=== PATIENT | female | born 1965 | race Caucasian/White ===

== ENCOUNTER 2019-11-02 03:37 | Observation (INO) ==
--- NOTE | 2019-11-02 04:05 | Emergency Department Note ---
History of Present Illness General Chief complaint: Abdominal Pain Stated complaint: Abdominal pain Time Seen by Provider: 11/02/19 03:41 History of Present Illness Maximum Pain Intensity: 2 This is a 54-year-old female that presents to the emergency department via ambulance with complaints of "abdominal pain". The patient states that prior to April of this year she was experiencing periumbilical abdominal pain about once a month. This is since that time seems to have increased. She states that this evening she was awoken from sleep around 1:45 AM with periumbilical abdominal pain that radiated to the posterior mid back region. She denies any chest pain or shortness of breath. No fevers or chills. She denies any loss of taste or smell. Current discomfort is very minimal at a 2/10 however prior to arrival was very severe and this was what prompted her to call the ambulance. She also notes that she was diaphoretic. She denies any known cardiac abnormalities besides hypertension. No history of abdominal surgeries. No nausea, vomiting or diarrhea. Home Medications Home Medications Medication Instructions Recorded Confirmed Type hydrochlorothiazide 25 mg PO HS 07/20/18 11/02/19 History losartan 100 mg PO HS 07/20/18 11/02/19 History oxycodone-acetaminophen [Percocet] 1 tab PO Q6H PRN #20 tab 11/03/19 Rx Allergies Allergy/AdvReac Type Severity Reaction Status Date / Time No Known Drug Allergies Allergy Unknown Verified 11/02/19 04:11 Past Med/Surg History Medical History Anxiety Depression Fluid retention in legs Genital warts GERD (gastroesophageal reflux disease) Hernia CURRENT ABDOMINAL HERNIA History of genital warts LASER PROCEDURE TO REMOVE Hypertension Urinary frequency Surgical History History of tooth extraction Hx of LASIK Family History Father Alcohol abuse Diabetes Brother Alcohol abuse Mother Hypertension Sister Hypertension Diabetes Aunt Multiple gestation paternal Denies family history of Pancreatic cancer Ovarian cancer Breast cancer Colorectal cancer Uterine cancer Social History (Updated 11/02/19 @ 06:16 by Minnie Orozco MD) Smoking Status: Current every day smoker Cigarettes Per Day: 20 CIG DAILY; Second Hand Exposure: No; Hx Alcohol Use: Yes Alcohol type: hard liquor Hx Substance Use: No Preferred Language: Bruneian Communication Ability: Effective 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 Beliefs That Will Affect Care: None Current Living Situation: Alone Feels Safe at Home: Yes Review of Systems A total of 10 systems reviewed and were otherwise negative Physical Exam Vital Signs Vital Signs - 24 hr 11/02/19 03:41 11/02/19 03:47 11/02/19 04:38 Temperature 37.1 C Temperature Source Oral Pulse Rate 68 71 66 Pulse Rate from SpO2 Sensor 69 70 66 Respiratory Rate 21 19 18 Respiratory Depth Shallow Blood Pressure 139/90 139/90 146/71 H Blood Pressure Mean 96 106 95 Pulse Oximetry 99 98 95 Oxygen Delivery Method Room Air Sepsis Recent Fever Within 48 Hours No Sepsis New/Unexplained Change in Mental Status No Sepsis Action Taken by Nursing No Action Required 11/02/19 05:02 11/02/19 05:32 11/02/19 06:00 Temperature Temperature Source Pulse Rate 64 69 63 Pulse Rate from SpO2 Sensor 64 71 59 L Respiratory Rate 18 21 21 Respiratory Depth Blood Pressure 129/53 L Blood Pressure Mean 83 Pulse Oximetry 96 96 93 Oxygen Delivery Method Sepsis Recent Fever Within 48 Hours Sepsis New/Unexplained Change in Mental Status Sepsis Action Taken by Nursing VITAL SIGNS - Vital signs and nursing notes were reviewed. Stable and afebrile. GENERAL - 54-year-old female appearing her stated age who is in no acute distress. Communicates well with provider and answers questions appropriately. SKIN - Without rashes. HEAD - NC/AT. EYES - PERRL with EOMI bilaterally. Sclera anicteric. EARS - No deformities of external structures noted on gross examination bilaterally. NOSE - Midline and without cyanosis. No epistaxis or purulent drainage noted. MOUTH/OROPHARYNX - Without perioral cyanosis. NECK - Neck with FROM. No nuchal rigidity. LUNGS - Chest wall symmetric without accessory muscle use, intercostals retractions, or central cyanosis. Normal vesicular breath sounds CTA B/L. No wheezes, rales, or rhonchi appreciated. CARDIAC - RRR with S1/S2. No murmur, rubs, or gallops appreciated. ABDOMEN - Abdominal contour normal without pulsations or visible masses. BS normoactive all four quadrants. No TTP of the abd. Abd soft and non rigid. No palpable masses, hepatosplenomegaly, or ascites noted. EXTREMITIES - +5/5 strength noted in UE/LE bilaterally. NEUROLOGIC - Cranial nerves II through XII grossly intact. Sensory intact to light touch throughout. PSYCH - A&O, and cooperates fully with examiner. Pt is very pleasant and interacts well with examiner. Course Administered Medications Docusate Sodium (Docusate Sodium 100 Mg Cap) 100 mg PO BID JOSHUA Stop: 12/02/19 20:59 Last Admin: 11/03/19 08:15 Dose: 100 mg Documented by: [id number] Admin: 11/02/19 20:40 Dose: 100 mg Documented by: [id number] Hydrochlorothiazide (Hydrochlorothiazide 25 Mg Tab) 25 mg PO HS JOSHUA Stop: 12/02/19 20:59 Last Admin: 11/02/19 20:40 Dose: 25 mg Documented by: [id number] Lactated Ringer's (Lr) 1,000 mls @ 15 mls/hr IV .Q24H JOSHUA Stop: 12/02/19 08:14 Last Admin: 11/03/19 08:17 Dose: Not Given Documented by: [id number] Admin: 11/02/19 12:13 Dose: Not Given Documented by: [id number] Lactated Ringer's (Lr) 1,000 mls @ 80 mls/hr IV .[id number] JOSHUA Stop: 12/02/19 11:32 Last Admin: 11/03/19 04:49 Dose: 80 mls/hr Documented by: [id number] Infusion: 11/03/19 04:49 Dose: 80 mls/hr Documented by: [id number] Admin: 11/02/19 17:34 Dose: 80 mls/hr Documented by: [id number] Cefazolin Sodium (Ancef 2000mg) 2,000 mg in 15 mls @ 3.75 mls/min IV Q8H JOSHUA Stop: 11/03/19 15:59 Last Admin: 11/03/19 08:19 Dose: 3.75 mls/min Documented by: [id number] Admin: 11/02/19 23:33 Dose: 3.75 mls/min Documented by: [id number] Admin: 11/02/19 15:51 Dose: 3.75 mls/min Documented by: [id number] Losartan Potassium (Losartan Potassium 50 Mg Tab) 100 mg PO JOSHUA Stop: 12/02/19 20:59 Last Admin: 11/02/19 20:40 Dose: 100 mg Documented by: [id number] Oxycodone/Acetaminophen (Oxycodone/Acetaminophen 5mg/325mg Tab) 1 tab PO Q4H PRN PRN Reason: MODERATE Pain (Scale 4,5,6) Stop: 11/16/19 11:32 Last Admin: 11/03/19 07:09 Dose: 1 tab Documented by: [id number] Admin: 11/02/19 15:51 Dose: 1 tab Documented by: [id number] Discontinued Medications Bacitracin (Bacitracin Oint 15 Gm Tube) Confirm Administered Dose 45 appln . ROUTE .STK-MED ONE Stop: 11/02/19 08:01 Last Admin: 11/02/19 09:35 Dose: 45 appln Documented by: [id number] Bupivacaine HCl (Bupivacaine 0.5 % 5 Mg/1 Ml Mpf 30ml Vial) Confirm Administered Dose 30 ml .ROUTE .STK-MED ONE Stop: 11/02/19 08:01 Last Admin: 11/02/19 09:40 Dose: 20 ml Documented by: [id number] Cefazolin Sodium (Cefazolin 3000mg/72.5 Ml Bag) Confirm Administered Dose 3,000 mg IV .STK-MED ONE Stop: 11/02/19 08:07 Last Admin: 11/02/19 08:10 Dose: 3,000 mg Documented by: [id number] Hydromorphone HCl (Hydromorphone Inj 1 Mg/Ml Syringe) 1 mg IV NOW STA Stop: 11/02/19 05:21 Last Admin: 11/02/19 05:28 Dose: 1 mg Documented by: [id number] Cefazolin Sodium (Ancef 3000mg) 72.5 mls @ 130 mls/hr IV PREOP ONE Stop: 11/02/19 09:03 Last Admin: 11/02/19 12:48 Dose: Not Given Documented by: [id number] Ioversol (Optiray 320 125ml) 125 ml IV ONCE ONE Stop: 11/02/19 04:38 Last Admin: 11/02/19 04:37 Dose: 119 ml Documented by: [id number] Lidocaine HCl (Lidocaine Hcl 1% 20 Ml Vial) Confirm Administered Dose 20 ml .ROUTE .STK-MED ONE Stop: 11/02/19 08:01 Last Admin: 11/02/19 09:40 Dose: 20 ml Documented by: [id number] Menthol (Cough Drop (Sugar Free) Altaf 24 Altaf/1 Box) Confirm Administered Dose 24 altaf BUCCAL .STK-MED ONE Stop: 11/03/19 02:40 Last Admin: 11/03/19 04:49 Dose: 24 altaf Documented by: [id number] Ondansetron HCl (Ondansetron Inj 2 Mg/Ml 2 Ml Vial) 4 mg IV NOW STA Stop: 11/02/19 05:21 Last Admin: 11/02/19 05:27 Dose: 4 mg Documented by: [id number] Medical Decision Making Laboratory Data Result diagrams: 11/03/19 06:08 11/02/19 03:52 Lab Results 11/02/19 11/02/19 11/02/19 Range/Units 03:52 03:52 03:52 WBC 10.13 (4.8-10.8) K/uL RBC 4.71 (4.2-5.4) M/uL Hgb 14.9 (12.0-16.0) g/dL Hct 43.0 (37-47) % MCV 91.3 (80-100) fL MCH 31.6 (25-34) pg MCHC 34.7 (32-36) g/dL RDW Std Deviation 43.0 (36.4-46.3) fL RDW Coeff of Azul 12.9 (11.5-14.5) % Plt Count 266 (130-400) K/uL MPV 10.9 H (7.4-10.4) fL Immature Gran % (Auto) 0.3 % Neut % (Auto) 65.3 % Lymph % (Auto) 25.4 % Mccracken % (Auto) 6.4 % Eos % (Auto) 2.4 % Baso % (Auto) 0.2 % Neut # (Auto) 6.62 H (1.4-6.5) K/uL Lymph # (Auto) 2.57 (1.2-3.4) K/uL Mccracken # (Auto) 0.65 H (0.11-0.59) K/uL Eos # (Auto) 0.24 (0-0.5) K/uL Baso # (Auto) 0.02 (0-0.2) K/uL Immature Gran # (Auto) 0.03 H (0.00-0.02) K/uL Sodium 138 (136-145) mmol/L Potassium 3.2 L (3.5-5.1) mmol/L Chloride 101 (98-107) mmol/L Carbon Dioxide 31 (21-32) mmol/L Anion Gap 6.0 (3-11) BUN 17 (7-18) mg/dl Creatinine 0.95 (0.6-1.2) mg/dl Est Cr Clr Drug Dosing 102.8 ml/min Est GFR ( Amer) 79.8 Est GFR (Non-Af Amer) 68.9 BUN/Creatinine Ratio 18.0 (10-20) Glucose 146 H (70-99) mg/dl Calcium 8.9 (8.5-10.1) mg/dl Magnesium 2.0 (1.8-2.4) mg/dl Total Bilirubin 0.3 (0.2-1) mg/dl AST 15 (15-37) U/L ALT 31 (12-78) U/L Alkaline Phosphatase 78 (45-117) U/L Troponin I < 0.015 (0-0.045) ng/ml Total Protein 7.3 (6.4-8.2) gm/dl Albumin 3.6 (3.4-5.0) gm/dl Globulin 3.7 (2.5-4.0) gm/dl Albumin/Globulin Ratio 1.0 (0.9-2) Lipase 114 (73-393) U/L TSH 4.470 (0.300-4.500) uIu/ml Urine Color Yellow Urine Appearance Cloudy A (Clear) Urine pH 5.5 (4.5-7.5) Ur Specific Wolcott 1.021 (1.000-1.030) Urine Protein Negative (Negative) Urine Glucose (UA) Negative (Negative) Urine Ketones Trace H (Negative) Urine Blood Negative (Negative) Urine Nitrite Negative (Negative) Urine Bilirubin Negative (Negative) Urine Urobilinogen Negative (Negative) Ur Leukocyte Esterase Trace H (Negative) Urine WBC (Auto) 5-10 H (0-5) /hpf Urine RBC (Auto) 0-4 (0-4) /hpf U Hyaline Cast (Auto) 1-5 (0-5) /lpf U Epithel Cells (Auto) >30 H (0-5) /lpf Urine Bacteria (Auto) 1+ H (Negative) POC Ur Test (NEG) COVID-19 Eval Order SARS-CoV-2, RNA, NAAT (NEGATIVE) 11/02/19 11/02/19 11/02/19 Range/Units 03:52 06:20 06:20 WBC (4.8-10.8) K/uL RBC (4.2-5.4) M/uL Hgb (12.0-16.0) g/dL Hct (37-47) % MCV (80-100) fL MCH (25-34) pg MCHC (32-36) g/dL RDW Std Deviation (36.4-46.3) fL RDW Coeff of Azul (11.5-14.5) % Plt Count (130-400) K/uL MPV (7.4-10.4) fL Immature Gran % (Auto) % Neut % (Auto) % Lymph % (Auto) % Mccracken % (Auto) % Eos % (Auto) % Baso % (Auto) % Neut # (Auto) (1.4-6.5) K/uL Lymph # (Auto) (1.2-3.4) K/uL Mccracken # (Auto) (0.11-0.59) K/uL Eos # (Auto) (0-0.5) K/uL Baso # (Auto) (0-0.2) K/uL Immature Gran # (Auto) (0.00-0.02) K/uL Sodium (136-145) mmol/L Potassium (3.5-5.1) mmol/L Chloride (98-107) mmol/L Carbon Dioxide (21-32) mmol/L Anion Gap (3-11) BUN (7-18) mg/dl Creatinine (0.6-1.2) mg/dl Est Cr Clr Drug Dosing ml/min Est GFR ( Amer) Est GFR (Non-Af Amer) BUN/Creatinine Ratio (10-20) Glucose (70-99) mg/dl Calcium (8.5-10.1) mg/dl Magnesium (1.8-2.4) mg/dl Total Bilirubin (0.2-1) mg/dl AST (15-37) U/L ALT (12-78) U/L Alkaline Phosphatase (45-117) U/L Troponin I (0-0.045) ng/ml Total Protein (6.4-8.2) gm/dl Albumin (3.4-5.0) gm/dl Globulin (2.5-4.0) gm/dl Albumin/Globulin Ratio (0.9-2) Lipase (73-393) U/L TSH (0.300-4.500) uIu/ml Urine Color Urine Appearance (Clear) Urine pH (4.5-7.5) Ur Specific Wolcott (1.000-1.030) Urine Protein (Negative) Urine Glucose (UA) (Negative) Urine Ketones (Negative) Urine Blood (Negative) Urine Nitrite (Negative) Urine Bilirubin (Negative) Urine Urobilinogen (Negative) Ur Leukocyte Esterase (Negative) Urine WBC (Auto) (0-5) /hpf Urine RBC (Auto) (0-4) /hpf U Hyaline Cast (Auto) (0-5) /lpf U Epithel Cells (Auto) (0-5) /lpf Urine Bacteria (Auto) (Negative) POC Ur Test NEG (NEG) COVID-19 Eval Order Covid19 [facility] SARS-CoV-2, RNA, NAAT NEGATIVE (NEGATIVE) Imaging Data Radiologist's Impression: CT ABDOMEN & PELVIS With Contrast: Periumbilical/supraumbilical hernia containing a loop of small bowel and intraperitoneal fat. No evidence for high-grade bowel obstruction. However, the herniated peritoneal fat is slightly hyperdense. Differential consideration includes edema or subtle inflammation. No free fluid. No intraperitoneal evidence for high-grade bowel obstruction. No free intrap eritoneal fluid or pneumoperitoneum. Incidental normal caliber appendix suggested medial to the cecum. Subcentimeter gallstones noted in the posterior aspect of the gallbladder. No biliary dilatation or CT evidence for gallbladder wall thickening. The liver, pancreas, spleen, adrenal glands and kidneys are unremarkable. The bladder is unremarkable. No acute osseous abnormality. Radiologist: Tanner Can MD Study ready at 04:48 and initial results transmitted at 05:04 ECG Data Additional Comments: Sinus rhythm at a rate of 60 bpm. No ectopy or ischemic change. No evidence of OH. QTc 459. MDM Narrative Patient was seen and evaluated as above in room C12. Review was performed of nursing notes and vital signs. I did review pertinent previous visits and patient history. After obtaining a thorough history and physical examination the above work up was performed. She presents to us today with abdominal pain. On my examination there is no pain. She notes tremendous improvement of her pain since she had called the ambulance. The patient denies any cardiac history other than hypertension. On arrival an EKG was obtained and reveals sinus rhythm at a rate of 68 bpm. No ectopy or ischemic change. Options of care were discussed and decision was made within a chest x-ray as well as CT scan of the abdomen and pelvis. Chest x-ray per my interpretation reveals no acute process. Patient declined pain medication. CT scan reveals no leukocytosis or anemia. Mild hypokalemia at 3.2. Glucose 146. Troponin negative. Urinalysis does not suggest clear infection. UPT negative. Chest x-ray negative per my interpretation as noted above. A CT scan was obtained of the abdomen pelvis and does reveal a supraumbilical hernia containing a loop of small bowel and intraperitoneal fat. On examination the hernia is not reducible thus far. I discussed the presentation with the on-call surgeon, Dr. Orozco. She came to evaluate the patient. Pain medication was recommended (with subsequent attempt at manual reduction at bedside) and I discussed this with the patient and she was amenable to this. 1 mg of Dilaudid was ordered and 4 mg of Zofran was ordered for any potential nausea associated with the pain medication. Dr. Ray can came to assess the patient. Plan at this time is operative management by Dr. Dotson later today. Please refer to further documentation regarding the patient's stay. GCS: 15 In the evaluation and treatment of this patient, the following differential diagnoses were considered: ASC, OH, Pneumonia, GERD, Cholecystitis, Ascending Cholangitis, Cholydocholithiasis, Bowel Obstruction, PE, Amongst Others. Impression & Plan Incarcerated hernia Discharge Plan Visit Data Chief Complaint: Abdominal Pain Stated Complaint: Abdominal pain ED Provider: Gomez Bernal ED Midlevel Provider: Ag Newberry Discharge Problem: Incarcerated hernia Patient Disposition: Being Evaluated by Surgeon Condition: Good Discharge Instructions Interventions: ED Discharge Assessment Last Done: 11/02/19 07:46
[2019-11-02 04:13] LABS: Basophils # (auto) 0.02 K/uL (0-0.2); Basophils % (auto) 0.2 %; Eosinophils # (auto) 0.24 K/uL (0-0.5); Eosinophils % (auto) 2.4 %; Hemoglobin 14.9 g/dL (12.0-16.0); Immature Granulocytes # (auto) 0.03 K/uL (0.00-0.02); Immature Granulocytes % (auto) 0.3 %; Lymphocytes # (auto) 2.57 K/uL (1.2-3.4); Lymphocytes % (auto) 25.4 %; Mean Corpuscular Hemoglobin 31.6 pg (25-34); Mean Corpuscular Hgb Conc 34.7 g/dL (32-36); Mean Corpuscular Volume 91.3 fL (80-100); Mean Platelet Volume 10.9 fL (7.4-10.4); Monocytes # (auto) 0.65 K/uL (0.11-0.59); Monocytes % (auto) 6.4 %; Neutrophils # (auto) 6.62 K/uL (1.4-6.5); Neutrophils % (auto) 65.3 %; Platelet Count 266 K/uL (130-400); RDW Coefficient of Variation 12.9 % (11.5-14.5); Red Blood Count 4.71 M/uL (4.2-5.4); White Blood Count 10.13 K/uL (4.8-10.8)
[2019-11-02 04:16] LABS: Appearance Urine Cloudy (Clear); Bacteria Urine Automated 1+ (Negative); Bilirubin Urine Negative (Negative); Blood Urine Negative (Negative); Color Urine Yellow; Epithelial Cell Urine Auto >30 /lpf (0-5); Glucose Urine UA Negative (Negative); Ketones Urine Trace (Negative); Leukocyte Esterase Urine Trace (Negative); Nitrite Urine Negative (Negative); Protein Urine Negative (Negative); RBC Urine Automated 0-4 /hpf (0-4); Specific Gravity Urine 1.021 (1.000-1.030); Urobilinogen Urine Negative (Negative); pH Urine 5.5 (4.5-7.5)
[2019-11-02 04:21] LABS: Alanine Aminotransferase 31 U/L (12-78); Albumin Level 3.6 gm/dl (3.4-5.0); Aspartate Aminotransferase 15 U/L (15-37); Blood Urea Nitrogen 17 mg/dl (7-18); Calcium 8.9 mg/dl (8.5-10.1); Carbon Dioxide 31 mmol/L (21-32); Chloride 101 mmol/L (98-107); Creatinine Clr Calc Pharmacy 102.8 ml/min; Est GFR (African American) 79.8; Est GFR (Non-African American) 68.9; Glucose 146 mg/dl (70-99); Lipase 114 U/L (73-393); Potassium 3.2 mmol/L (3.5-5.1); Sodium 138 mmol/L (136-145)
[2019-11-02 04:32] LABS: Alkaline Phosphatase 78 U/L (45-117); Bilirubin,Total 0.3 mg/dl (0.2-1); Globulin 3.7 gm/dl (2.5-4.0); Total Protein 7.3 gm/dl (6.4-8.2); Troponin I < 0.015 ng/ml (0-0.045)
[2019-11-02] MEDS ORDERED: OPTIRAY 320 125ml IV ONE (04:37)
[2019-11-02] MEDS ORDERED: HYDROmorphone INJ 1 MG/ML SYRINGE IV STA (05:20)
[2019-11-02] MEDS ORDERED: ONDANSETRON INJ 2 MG/ML 2 ML VIAL IV STA (05:20)
--- NOTE | 2019-11-02 06:19 | History & Physical Report ---
Date of Service November 02, 2019 Assessment & Plan (1) Incarcerated hernia: Unable to reduce at bedside, imaging shows loop of bowel within hernia sac. Discussed urgent hernia repair - risks of possible strangulation of bowel requiring bowel resection, possible use of mesh, higher risk of recurrence due to her BMI, bleeding, infection all discussed. Expected hospital course and 1-2 week recovery (if no bowel resection) reviewed. Will add on for OR today with Dr. Dotson who will be taking over at 7 am. Will check [employer] testing. Last meal was 10:00 pm. Present on Admission?: Yes (2) Morbid obesity: Explained impact this can have on surgical risk/ recurrence of hernia. Present on Admission?: Yes History of Present Illness Chief Complaint: abdominal pain Primary Care Provider: Enedina Moreland MD 54 yr old woman with BMI 52 and supraumbilical hernia present for the last few months who presents with acute incarceration. Prior, was having pain intermittently at site, would improve if she laid down. At 1:45 last night, developed acute onset of pain at site, did not improve, worse if she stood/ walked, better with laying down, no associated nausea or vomiting, did note diaphoresis. Came to ER for evaluation and CT scan showed incarcerated supraumbilical hernia containing a loop of bowel and omentum. At rest, her pain is 2/10. Pain meds were given in attempt to reduce - I tried reducing hernia but was unsuccessful. Allergies Allergy/AdvReac Type Severity Reaction Status Date / Time No Known Drug Allergies Allergy Unknown Verified 11/02/19 04:11 Home Medications Home Medications Medication Instructions Recorded Confirmed Type hydrochlorothiazide 25 mg PO HS 07/20/18 11/02/19 History losartan 100 mg PO HS 07/20/18 11/02/19 History Past Med/Surg History Medical History Anxiety Depression Fluid retention in legs Genital warts GERD (gastroesophageal reflux disease) Hernia CURRENT ABDOMINAL HERNIA History of genital warts LASER PROCEDURE TO REMOVE Hypertension Urinary frequency Surgical History History of tooth extraction Hx of LASIK Family History Father Alcohol abuse Diabetes Brother Alcohol abuse Mother Hypertension Sister Hypertension Diabetes Aunt Multiple gestation paternal Denies family history of Pancreatic cancer Ovarian cancer Breast cancer Colorectal cancer Uterine cancer Social History (Updated 11/02/19 @ 06:16 by Minnie Orozco MD) Smoking Status: Current every day smoker Cigarettes Per Day: 20 CIG DAILY; Second Hand Exposure: No; Hx Alcohol Use: Yes Alcohol type: hard liquor Hx Substance Use: No Preferred Language: Kyrgyz Communication Ability: Effective Cloth Drier Required: No Beliefs That Will Affect Care: None Current Living Situation: Alone Feels Safe at Home: Yes Review of Systems Constitutional: no fever and no weight loss Eyes: no problem reported Ear, Nose, Mouth, Throat: no problem reported Respiratory: + dyspnea on exertion; no cough and no chest congestion Cardiovascular: no chest pain with activity and no palpitations Gastrointestinal: as per Subjective / HPI Genitourinary: no problem reported Musculoskeletal: no problem reported Integumentary: no problem reported Neurologic: no problem reported Psychiatric: + anxiety Physical Exam Constitutional: WD/WN, vitals as above + morbidly obese Eyes: PERRL, conjunctivae normal, anicteric sclerae ENMT: external ear and nose normal, oropharynx normal Respiratory: normal respiratory effort, lungs clear to auscultation Cardiovascular: RRR, no murmur, no edema Gastrointestinal (Abdomen): Inspection/Auscultation: abdomen normal to inspection and normal bowel sounds; abdomen not distended Percussion/Palpation: + abdomen tender, abdomen soft and + hernia (irreducible supraumbilical hernia measuring about 3 cm) mild with deep palpation over hernia site Musculoskeletal: no cyanosis or clubbing, extremities motor strength 5/5 Neurologic: moves all extremities; no focal motor deficits Psychiatric: Orientation: alert and oriented x 3 Affect: + anxious affect Results & Data Results & Data ([facility]) Vital Signs (Past 12 Hours) Vital Signs Temp Pulse Resp BP Pulse Ox 11/02/19 06:00 63 21 129/53 L 93 11/02/19 05:32 69 21 96 11/02/19 05:02 64 18 96 11/02/19 04:38 66 18 146/71 H 95 11/02/19 03:47 37.1 C 71 19 139/90 98 11/02/19 03:41 68 21 139/90 99 Laboratory Results Abnormal lab results 11/02/19 11/02/19 11/02/19 Range/Units 03:52 03:52 03:52 MPV 10.9 H (7.4-10.4) fL Neut # (Auto) 6.62 H (1.4-6.5) K/uL Motley # (Auto) 0.65 H (0.11-0.59) K/uL Immature Gran # (Auto) 0.03 H (0.00-0.02) K/uL Potassium 3.2 L (3.5-5.1) mmol/L Glucose 146 H (70-99) mg/dl Urine Appearance Cloudy A (Clear) Urine Ketones Trace H (Negative) Ur Leukocyte Esterase Trace H (Negative) Urine WBC (Auto) 5-10 H (0-5) /hpf U Epithel Cells (Auto) >30 H (0-5) /lpf Urine Bacteria (Auto) 1+ H (Negative) Diagnostic Findings CT scan abd/ pelvis personally reviewed - shows supraumbilical hernia containing a loop of bowel and omentum with stranding surrounding
[2019-11-02] MEDS ORDERED: ONDANSETRON INJ 2 MG/ML 2 ML VIAL IV PRN ×2 (07:27→11:33)
[2019-11-02] MEDS ORDERED: ATROPINE SULFATE 0.1 MG/ML 10ML SYR IV PRN (07:27)
[2019-11-02] MEDS ORDERED: fentaNYL citrate 100 MCG/2 ML VIAL IV PRN (07:27)
[2019-11-02] MEDS ORDERED: ePHEDrine sulfate 50 MG/ML AMP IV PRN (07:27)
--- NOTE | 2019-11-02 07:34 | CT Scan Report ---
ABDOMEN AND PELVIS CT WITH IV CONTRAST CT DOSE: 2150.63 mGy.cm HISTORY: Periumbilical pain radiating to mid back TECHNIQUE: Multiaxial CT images of the abdomen and pelvis were performed following the use of intrave nous contrast. A dose lowering technique was utilized adhering to the principles of ALARA. COMPARISON STUDY: Abdominal ultrasound 10/19/2019. FINDINGS: The lung bases are clear. No pneumoperitoneum. No pneumatosis. No fractures within the visu alized osseous structures. Hepatic steatosis. No hepatic or splenic masses. The adrenal glands, pancr eas, and kidneys are within normal limits. No hydronephrosis. No retroperitoneal lymphadenopathy. Nor mal caliber abdominal aorta. There is a punctate gallstone. No gallbladder wall thickening. The bladd er, uterus, and bilateral adnexa are within normal limits. No pelvic free fluid. A few colonic divert icula. No evidence for acute diverticulitis. Normal appendix. There is a moderate-sized suprapatellar hernia containing fat and a short segment of small bowel. The small bowel immediately proximal to th e hernia is fluid-filled and borderline dilated measuring up to 2.6 cm in diameter. This raises the p ossibility of a low-grade partial small bowel obstruction from the hernia. The hernia sac measures 10 cm. The hernia neck measures 3.8 cm. There is mild infiltration of the herniated fat. IMPRESSION: 1. Moderate-sized supra umbilical hernia containing fat and a short segment small bowel. The small cj wel immediately proximal to the hernia is fluid-filled and borderline dilated. This raises the possib ility of a low-grade partial small bowel obstruction. Clinical correlation recommended. 2. Cholelithiasis. 3. Colonic diverticulosis. No evidence for diverticulitis. 4. Normal appendix. 5. Hepatic steatosis. ACT 112: Negative or not required by law. Electronically signed by: López Portillo M.D. 11/02/2019 7:33 AM
--- NOTE | 2019-11-02 07:36 | Anesthesiology Consultation ---
Date of Service November 02, 2019 Assessment & Plan (1) Encounter for pre-operative examination: Chart Review Chart Review: Acceptable Risk for Surgery Consults Requested none ASA [id number] Proposed Anesthesia Anesthesia Type: General Risk / Benefits Reviewed With: PT / POA / Parent / Guardian, Accepts Plan and Informed Consent Obtained History Surgery Operation Date: 11/02/19 07:00 Proposed Procedures p Incarcerated Hernia Repair, Possible Bowel Resection - Alexis Dotson MD Height/Weight Height: 5 ft 6 in Weight: 146 kg Allergies Allergy/AdvReac Type Severity Reaction Status Date / Time No Known Drug Allergies Allergy Unknown Verified 11/02/19 04:11 Medications Home Medications Medication Instructions Recorded Confirmed Last Taken hydrochlorothiazide 25 mg PO HS 07/20/18 11/02/19 Unknown losartan 100 mg PO HS 07/20/18 11/02/19 Unknown NPO Date Last Intake of Fluids: 11/02/19 Time Last Intake of Fluids: 03:00 Date Last Intake of Solids: 11/01/19 Time Last Intake of Solids: 22:30 Past Medical History Medical History Anxiety Depression Fluid retention in legs Genital warts GERD (gastroesophageal reflux disease) Hernia CURRENT ABDOMINAL HERNIA History of genital warts LASER PROCEDURE TO REMOVE Hypertension Urinary frequency Exercise / Class Metabolic Activity III < 4 Walking/Shop/Light housework Past Family History Family History Father Alcohol abuse Diabetes Brother Alcohol abuse Mother Hypertension Sister Hypertension Diabetes Aunt Multiple gestation paternal Denies family history of Pancreatic cancer Ovarian cancer Breast cancer Colorectal cancer Uterine cancer Past Surgical History Surgical History History of tooth extraction Hx of LASIK Past Anesthesia History No Hx of Anesthesia Complications and No Family Hx of Anesthesia Complications History of PONV No Hx of PONV and No Hx of Motion Sickness Social History Smoking Status: Current every day smoker tobacco type: cigarettes Smoking cigarettes per day: 20 CIG DAILY Hx Alcohol Use: Yes Alcohol type: hard liquor alcohol intake frequency: a few times a month Hx Substance Use: No substance use type: does not use Physical Exam Vital Signs Last Vital Signs Temp 98.8 F 11/02/19 03:47 Pulse 60 11/02/19 07:46 Resp 18 11/02/19 07:46 BP 154/73 H 11/02/19 07:46 Pulse Ox 95 11/02/19 07:46 ENMT Mouth: no dentition abnormality Thyromental Distance: > or= 3.5 Finger Breadths Mallampati Class: II Neck normal visual inspection Respiratory normal respiratory effort Auscultation: lungs clear to auscultation bilaterally Cardiovascular Rate/Rhythm: regular rate and regular rhythm Testing Laboratory Results 11/02/19 03:52 11/02/19 03:52 Urine Color Yellow 11/02/19 03:52 Urine Appearance Cloudy (Clear) A 11/02/19 03:52 Urine pH 5.5 (4.5-7.5) 11/02/19 03:52 Ur Specific Mcdowell 1.021 (1.000-1.030) 11/02/19 03:52 Urine Protein Negative (Negative) 11/02/19 03:52 Urine Glucose (UA) Negative (Negative) 11/02/19 03:52 Urine Ketones Trace (Negative) H 11/02/19 03:52 Urine Nitrite Negative (Negative) 11/02/19 03:52 Ur Leukocyte Esterase Trace (Negative) H 11/02/19 03:52 Urine WBC (Auto) 5-10 /hpf (0-5) H 11/02/19 03:52 Urine RBC (Auto) 0-4 /hpf (0-4) 11/02/19 03:52 U Hyaline Cast (Auto) 1-5 /lpf (0-5) 11/02/19 03:52 U Epithel Cells (Auto) >30 /lpf (0-5) H 11/02/19 03:52 Urine Bacteria (Auto) 1+ (Negative) H 11/02/19 03:52 11/02/19 03:52 POC Ur Test NEG Electrocardiogram Date: 11/02/19 Sinus rhythm with Fusion complexes, rate 68 bpm Low voltage QRS Borderline ECG No previous ECGs available
[2019-11-02] MEDS ORDERED: SUCCINYLCHOLINE CHLORIDE 20 MG/ML 10 ML VIAL IV ONE (07:42)
[2019-11-02] MEDS ORDERED: PROPOFOL IV EMULSION 10 MG/ML 20 ML VIAL IV ONE (07:42)
[2019-11-02] MEDS ORDERED: LIDOCAINE HCL 2% 2 ML VIAL/AMP(20MG/ML) INFIL ONE (07:42)
[2019-11-02] MEDS ORDERED: ONDANSETRON INJ 2 MG/ML 2 ML VIAL ONE (07:42)
[2019-11-02] MEDS ORDERED: MIDAZOLAM HCL 1 MG/ML 2ML VIAL ONE (07:42)
[2019-11-02] MEDS ORDERED: ROCURONIUM BROMIDE 10 MG/ML 5 ML VIAL IV ONE (07:42)
[2019-11-02] MEDS ORDERED: fentaNYL citrate 100 MCG/2 ML VIAL ONE (07:42)
[2019-11-02] MEDS ORDERED: ALBUMIN HUMAN 5% 12.5 GM/250 ML VIAL IV ONE (07:44)
--- NOTE | 2019-11-02 07:54 | XRay Report ---
SINGLE VIEW CHEST CLINICAL HISTORY: Periumbilical abdominal pain. Thoracic back pain. FINDINGS: An AP, portable, upright chest radiograph is obtained. No prior studies are available for c omparison at the time of dictation. The examination is degraded by portable technique and apical lord otic positioning. The heart is top normal for projection. Mild atelectasis seen at the lung bases. Th e lungs and pleural spaces are otherwise clear. No pneumothorax is seen. The bony thorax is grossly i ntact. IMPRESSION: No active disease in the chest. ACT 112: Negative or not required by law. Electronically signed by: Abisai Paniagua M.D. 11/02/2019 7:52 AM
[2019-11-02] MEDS ORDERED: BUPIVACAINE 0.5 % 5 MG/1 ML MPF 30ML VIAL ONE (08:00)
[2019-11-02] MEDS ORDERED: BACITRACIN OINT 15 GM TUBE ONE (08:00)
[2019-11-02] MEDS ORDERED: LIDOCAINE HCL 1% 20 ML VIAL ONE (08:00)
[2019-11-02] MEDS ORDERED: CEFAZOLIN 3000MG/72.5 ML BAG IV ONE (08:06)
--- NOTE | 2019-11-02 08:06 | History & Physical Bridge Note ---
Date of Service November 02, 2019 History & Physical Bridge Note I have examined the patient, reviewed the History & Physical and in the interval since the performance of the History & Physical I have noted the following changes of clinical significance: no changes noted, I saw pt and reviewed pt's H/P, labs, CT scan with pt, I recommend to do open repair incarcerated ventral hernia possible with mesh , or bowel resection, D/W benefits, risks and alternatives of the surgery, the risks- infection, bleeding, hernia recurrence, complications relate to mesh, bowel obstruction, pt understood, she agrees with the surgery, I answered all questions,
[2019-11-02] MEDS ORDERED: CEFAZOLIN 3000MG 72.5 ML IV ONE (08:30)
[2019-11-02] MEDS ORDERED: NEOSTIGMINE METHYLSULFATE 5 MG/5 ML SYR ONE (09:15)
[2019-11-02] MEDS ORDERED: GLYCOPYRROLATE 0.2 MG/ML VIAL ONE (09:15)
--- NOTE | 2019-11-02 09:37 | Post Operative Brief Note ---
Immediate Post Op Note v1 Date of Surgery November 02, 2019 Pre & Post Diagnosis Operation Date: 11/02/19 07:00 Pre-Op Diagnosis: Abdominal pain Post-Op Diagnosis: Incarcerated ventral hernia I identified the patient and participated in the time-out.: Yes Procedure Operation Date: 11/02/19 07:00 Actual Procedures p open repair Incarcerated Ventral Hernia with mesh(Not Applicable) - Alexis Dotson MD Surgeon Alexis Dotson MD Operative Supervisor MICHAEL Chairez Estimated Blood Loss 20 Findings Consistent with Post-Op Diagnosis incarcerated ventral hernia, size 3x3cm, Fluids 1200ml Specimens hernia sac Drains Ledesma Catheter (16 fr ledesma catheter inserted by JOHN Ochoa without difficulty. Clear yellow urine for return.) Anesthesia Type General Complications none Disposition Accompanied Patient To Recovery: Yes Disposition: Recovery Room Overlapping Procedure I was immediately available: during the entire case.
--- NOTE | 2019-11-02 11:26 | Operative Report (OR) ---
DATE OF OPERATION: 11/02/2019 PREOPERATIVE DIAGNOSIS: Incarcerated ventral hernia. POSTOPERATIVE DIAGNOSIS: Incarcerated ventral hernia. OPERATION: Open repair of incarcerated ventral hernia with mesh. SURGEON: Alexis Dotson MD. SEO MARKETING SPECIALIST: Cristy Dodge PA-C. ANESTHESIA: General. ESTIMATED BLOOD LOSS: About 20 mL FINDINGS: Incarcerated ventral hernia. The hernia neck size of about 3 x 3 cm. COMPLICATIONS: None. INDICATIONS FOR THE PROCEDURE: This is a 54-year-old female who presented to ED with incarcerated ventral hernia and patient will require to do open repair of incarcerated ventral hernia, possible mesh and possible bowel resection. I did talk to the patient about the benefit, the risk, alternate procedure. I indicated the risks may include but not limited such as bleeding, infection, hernia recurrence, bowel obstruction, complication related to mesh, abscess, seroma. Patient understands. She signed informed consent and I answered all questions. DETAILS OF PROCEDURE: We brought the patient to the OR, put the patient in the supine position. The patient received SCD on bilateral legs to prevent DVT. Also, patient received 2 grams Ancef IV for prophylactic antibiotic. The patient received general anesthesia without difficulty. Also, patient received Dennis catheter insertion. The patient's abdomen was prepped and draped in routine sterile fashion. After timeout, I made a midline incision just above the umbilical incision length about 3 cm. Then we reached the subcutaneous layer and found the patient has a large ventral hernia sac. We mobilized the hernia sac and opened the hernia sac, found the patient had an incarcerated omental fat with partial small bowel and the hernia sac, we completed the small bowel, the color is pink. No compromise on the blood circulation on small bowel. We reduced the small bowel and incarcerated omental fat back to the abdominal cavity. Then we found the patient had a hernia of the neck size about 3 x 3 cm and then I chose a 6.4 cm round mesh to repair the hernia. I used #1 Ethibond suture mesh to fascia interruptedly all the way 360 degrees. Then we tied suture one by one. The mesh seated nicely, no tension. Hemostasis was obtained before we put the mesh in. Again, we rechecked to make sure hemostasis was obtained again and then we closed subcutaneous layer by using 2-0 Vicryl continuous running and closed the skin by using staple. Then, we put the dressing on. The patient tolerated the procedure well. All instrument, needle and sponge count were correct x2 at the end of the case. The patient transferred to recovery room in stable condition. After the procedure, I did talk to the patient about the OR finding and the procedure we did. The patient understands. My asistant was necessary throughout the procedure for open repair incarcerated ventral hernia . I attest to the content of the Intraoperative Record and any orders documented therein. Any exceptions are noted below. JAREK
[2019-11-02] MEDS ORDERED: HYDROmorphone INJ 0.5 MG/0.5 ML SYR IV PRN (11:33)
[2019-11-02] MEDS ORDERED: OXYCODONE/ACETAMINOPHEN 5mg/325mg TAB PO PRN (11:33)
[2019-11-02] MEDS ORDERED: ACETAMINOPHEN 325 MG TAB PO PRN (11:33)
[2019-11-02] MEDS ORDERED: HYDROmorphone INJ 1 MG/ML SYRINGE IV PRN ×2 (11:33)
[2019-11-02] MEDS: LACTATED RINGER'S 1,000 ML IV SCH ×2 (12:13→17:34)
--- NOTE | 2019-11-02 12:34 | Anesthesiology Progress Note ---
Date of Service November 02, 2019 Anesthesia Post Procedure Vital Signs Vital Signs: Temp Pulse Pulse Pulse Resp BP BP 11/02/19 12:16 60 16 11/02/19 11:47 97.7 F 56 L 16 11/02/19 11:45 62 18 11/02/19 11:00 58 L 18 11/02/19 10:50 57 L 18 11/02/19 10:40 97.5 F L 60 18 11/02/19 10:30 64 18 11/02/19 10:20 62 20 11/02/19 10:10 62 21 11/02/19 10:00 63 20 11/02/19 09:58 97.2 F L 62 24 11/02/19 08:03 97.9 F 76 18 135/68 11/02/19 07:46 60 18 154/73 H 11/02/19 07:00 66 21 133/71 11/02/19 06:31 64 22 137/78 11/02/19 06:30 73 16 11/02/19 06:00 63 21 129/53 L 11/02/19 05:32 69 21 11/02/19 05:02 64 18 11/02/19 04:38 66 18 146/71 H 11/02/19 03:47 98.8 F 71 19 139/90 11/02/19 03:41 68 21 139/90 BP Pulse Ox 11/02/19 12:16 119/78 94 11/02/19 11:47 113/65 95 11/02/19 11:45 117/67 95 11/02/19 11:00 131/62 93 11/02/19 10:50 120/63 93 11/02/19 10:40 126/74 93 11/02/19 10:30 125/66 93 11/02/19 10:20 132/75 96 11/02/19 10:10 130/72 98 11/02/19 10:00 122/57 L 96 11/02/19 09:58 141/55 H 97 11/02/19 08:03 96 11/02/19 07:46 95 11/02/19 07:00 11/02/19 06:31 11/02/19 06:30 11/02/19 06:00 93 11/02/19 05:32 96 11/02/19 05:02 96 11/02/19 04:38 95 11/02/19 03:47 98 11/02/19 03:41 99 Pain Intensity Abdomen: Pain Intensity: 0 Transfer of Care Handoff Completed per policy Notes Mental Status: alert / awake / arousable and participated in evaluation Patient Amnestic to Procedure: Yes Nausea / Vomiting: adequately controlled Pain: adequately controlled Airway Patency, RR, SpO2: stable & adequate BP & HR: stable & adequate Hydration State: stable & adequate Anesthetic Complications: no major complications apparent and Pt Satisfied with anesthetic care
--- NOTE | 2019-11-02 13:22 | Electrocardiogram Report ---
Test Reason : Blood Pressure : / mmHG Vent. Rate : 068 BPM Atrial Rate : 068 BPM P-R Int : 180 ms QRS Dur : 086 ms QT Int : 432 ms P-R-T Axes : 058 064 058 degrees QTc Int : 459 ms Sinus rhythm with Fusion complexes Low voltage QRS Borderline ECG No previous ECGs available Confirmed by Liam López ([id number]) on 11/02/2019 1:22:09 PM Referred By: REFERRED SELF Confirmed By:Liam López
[2019-11-02] MEDS: CEFAZOLIN 2000MG 2,000 MG/15 ML SYR IV SCH ×2 (15:51→23:33)
[2019-11-02] MEDS: OXYCODONE/ACETAMINOPHEN 5mg/325mg TAB PO PRN (15:51)
[2019-11-02] MEDS: DOCUSATE SODIUM 100 MG CAP PO SCH (20:40)
[2019-11-02] MEDS ORDERED: hydroCHLOROthiazide 25 MG TAB PO SCH (21:00)
[2019-11-02] MEDS ORDERED: LOSARTAN POTASSIUM 50 MG TAB PO SCH (21:00)
[2019-11-03] MEDS ORDERED: COUGH DROP (SUGAR FREE) LOZ 24 LOZ/1 BOX BUCCAL ONE (02:39)
[2019-11-03] MEDS: LACTATED RINGER'S 1,000 ML IV SCH ×3 (04:49→12:19)
[2019-11-03 06:36] LABS: Hematocrit (blood only) 41.5 % (37-47); Hemoglobin 14.2 g/dL (12.0-16.0); Mean Corpuscular Hemoglobin 31.3 pg (25-34); Mean Corpuscular Hgb Conc 34.2 g/dL (32-36); Mean Corpuscular Volume 91.4 fL (80-100); Mean Platelet Volume 11.1 fL (7.4-10.4); Platelet Count 235 K/uL (130-400); RDW Coefficient of Variation 13.5 % (11.5-14.5); RDW Standard Deviation 44.4 fL (36.4-46.3); Red Blood Count 4.54 M/uL (4.2-5.4); White Blood Count 12.58 K/uL (4.8-10.8)
[2019-11-03] MEDS: OXYCODONE/ACETAMINOPHEN 5mg/325mg TAB PO PRN ×2 (07:09→12:23)
[2019-11-03 08:12] VITALS: BP 96/62; PULSE 77; TEMP 98.6; O2SAT 94
[2019-11-03] MEDS: DOCUSATE SODIUM 100 MG CAP PO SCH (08:15)
[2019-11-03] MEDS: CEFAZOLIN 2000MG 2,000 MG/15 ML SYR IV SCH (08:19)
--- NOTE | 2019-11-03 08:56 | Surgery Progress Note ---
Date of Service F/U S/P open repair ventral hernia with mesh, POD 1 pt is doing fine, no significant abdominal pain, tolerated clear diet, no nausea, no vomiting, November 03, 2019 Assessment & Plan (1) Incarcerated hernia: Unable to reduce at bedside, imaging shows loop of bowel within hernia sac. Discussed urgent hernia repair - risks of possible strangulation of bowel requiring bowel resection, possible use of mesh, higher risk of recurrence due to her BMI, bleeding, infection all discussed. Expected hospital course and 1-2 week recovery (if no bowel resection) reviewed. Will add on for OR today with Dr. Dotson who will be taking over at 7 am. Will check [employer] testing. Last m eal was 10:00 pm. 11/03/2019 8:55AM doing fine, pt wants to go home today, discharge today, the post-op care instruction was given, F/U 2 weeks, (2) Morbid obesity: Explained impact this can have on surgical risk/ recurrence of hernia. Admission and Anticipated Discharge Date Admission Date: November 02, 2019 Review of Systems Respiratory: + dyspnea on exertion; no cough and no chest congestion Gastrointestinal: as per Subjective / HPI Psychiatric: + anxiety Physical Exam Constitutional: WD/WN, vitals as above well developed and well nourished Eyes: PERRL, conjunctivae normal, anicteric sclerae ENMT: external ear and nose normal, oropharynx normal Neck: trachea midline, no thyromegaly Respiratory: normal respiratory effort, lungs clear to auscultation Cardiovascular: RRR, no murmur, no edema Gastrointestinal (Abdomen): normal bowel sounds, soft, nontender, no hepatosplenomegaly mild tenderness at incision site, no redness, no drainage, no distend, BS + Musculoskeletal: no cyanosis or clubbing, extremities motor strength 5/5 Skin: no rashes, warm and dry Neurologic: awake Psychiatric: Orientation: alert and oriented x 3 Results & Data ([facility]) Vital Signs (Past 12 Hours) Vital Signs Temp Pulse Resp BP Pulse Ox 11/03/19 08:11 37 C 77 16 96/62 L 94 11/03/19 03:55 37.1 C 76 16 105/67 92 11/02/19 23:27 92 11/02/19 23:26 36.9 C 71 16 113/69 90 Laboratory Results Abnormal lab results 11/03/19 Range/Units 06:08 WBC 12.58 H (4.8-10.8) K/uL MPV 11.1 H (7.4-10.4) fL
--- NOTE | 2019-11-03 09:32 | Discharge Summary ---
Date of Service November 03, 2019 Admission HPI Per Admitting Provider 54 yr old woman with BMI 52 and supraumbilical hernia present for the last few months who presents with acute incarceration. Prior, was having pain intermittently at site, would improve if she laid down. At 1:45 last night, developed acute onset of pain at site, did not improve, worse if she stood/ walked, better with laying down, no associated nausea or vomiting, did note diaphoresis. Came to ER for evaluation and CT scan showed incarcerated supraumbilical hernia containing a loop of bowel and omentum. At rest, her pain is 2/10. Pain meds were given in attempt to reduce - I tried reducing hernia but was unsuccessful. Principal Diagnosis Incarcerated ventral hernia Discharge Data Allergies Allergy/AdvReac Type Severity Reaction Status Date / Time No Known Drug Allergies Allergy Unknown Verified 11/02/19 04:11 Procedures Performed Operation Date: 11/02/19 07:00 Actual Procedures p Incarcerated Ventral Hernia Repair(Not Applicable) - Alexis Dotson MD Ordered Studies 11/02/19 03:55 CT abd pelvis IV con only Urgent Hospital Course (1) Incarcerated hernia: Patient was taken to operating room from emergency department for open ventral hernia repair with possible mesh and possible bowel resection by Dr. Dotson. Patient found to have incarcerated ventral hernia containing small bowel however no evidence of ischemia. Mesh was used in procedure. Patient tolerated procedure well and was transferred to recovery and then to medical/surgical floor for postoperative care. PO Percocet and breakthrough IV Dilaudid as needed for pain, clear liquid diet and advance as tolerated, activity as tolerated, abdominal binder, and incentive spirometry. POD # 1 vitals stable, afebrile, postop pain controlled, tolerated regular diet. Patient ready for discharge. Discharge instructions reviewed and patient discharged home on POD # 1 in stable condition. (2) Morbid obesity: Explained impact this can have on surgical risk/ recurrence of hernia. Total Time Total Time Spent Total Time Spent (In Minutes): 15 Total Time Includes: Examination of the Patient, Discharge Planning and Medication Reconciliation Discharge Plan Discharge Items Patient Disposition: Home - Self-Care Reason For Visit: INCARCEREATED VENTRAL HERNIA Discharge Diagnosis: S/P open repair incarcerated ventral hernia with mesh Condition on Discharge: Good Activity: As commented below Lifting: No more than 25 pounds Lifting Comment: for 4 weeks Bathing: May shower/bathe in 3 days Sexual Activity: After two weeks Exercise/Sports: Rest today Driving/Machine Use: no driving while taking pain medicine, Non-emergency contact: Surgeon Call non-emergency contact if: you have any medication questions, your symptoms worsen, your pain is not controlled, your pain is worsening, your pain is unusual for you, you have a fever, your temperature is above 101, your wound has increased redness, your wound has increased drainage and your wound pain has increased Follow-up/Referrals: Enedina Moreland MD [Primary Care Provider] - 11/08/19 9:50 am ([facility] WITH [facility]) Alexis Dotson MD [Physician] - 11/16/19 12:00 pm (follow up Dr. Dotson 2 weeks, Agree-I have documented within the medical record.) Diet: Regular Addtl Attending Provider Instructions: Post-Surgical ~Discharge Instructions Activity Recommendations: - lifting limitation: (25 pounds for 4 weeks), - exercise/sex/sports limit: (nonstrenuous for 4 weeks), - driving or machine use limit: (none for 1 week or until no longer having pain or taking narcotic pain medication - Shower/bathe limit: (may shower beginning in 3 days) Diet: - Resume previous diet SPECIAL CARE INSTRUCTIONS: - May shower in 3 days, sponge bath and wash hair in meantime. After 3 days, remove outer dressing and let water run over area and pat dry. - Surgical lena will be removed in office. - Call the surgeon's office with any questions or concerns - - (ex. temperature higher than 101 degrees F, excessive bleeding or pain). MEDICATIONS: - Resume previous medications unless instructed otherwise by your surgeon. - You can alternate extra strength Tylenol and Ibuprofen as needed for mild pain - 650 mg of Tylenol every 6 hours as needed - Ibuprofen 600 mg every 6 hours as needed (take with food) - Percocet 1 every 4 hours, as needed for moderate to severe pain - Recommend taking [id number] stool softener (Colace) daily to twice a day while taking narcotic pain medication to avoid constipation and straining. FOLLOW UP VISIT: - If not already scheduled, please call the office to schedule a two week follow-up appointment. Office number Pending Studies at Discharge: Yes Studies:: hernia sac pathology report Stand-Alone Forms: [facility], Work/School Release (Inpt), Smoking Cessation Medications and DC Order Prescriptions: New oxycodone-acetaminophen [Percocet] 5-325 mg tablet 1 tab PO Q6H PRN (Reason: pain) Qty: 20 RF: 0 Continued hydrochlorothiazide 25 mg Tablet 25 mg PO HS RF: 0 losartan 100 mg Tablet 100 mg PO HS RF: 0 Discharge Orders: Discharge Order (Routine); Ordered 11/03/19 Ordered By: Alexis Dotson Admission Data Admit Date/Time: 11/02/19 10:12 Attending Provider: Alexis Dotson Admit Provider: Alexis Dotson Primary Care Provider: Enedina Moreland
== END 2019-11-03 14:19 | disposition home or self-care (01) ==
LOC: ED 03:37 → 3N 08:00 → ASU 08:00
DX: K21.9 Gastro-esophageal reflux disease without esophagitis; E66.01 Morbid (severe) obesity due to excess calories; K43.6 Other and unspecified ventral hernia with obstruction, without gangrene; Z68.43 Body mass index [BMI] 50.0-59.9, adult; I10 Essential (primary) hypertension; Z79.899 Other long term (current) drug therapy; F17.210 Nicotine dependence, cigarettes, uncomplicated